=== PATIENT | female | born 1965 | race Caucasian/White ===

== ENCOUNTER 2023-02-27 19:28 | Emergency (ER) | payer BC ==
[~2023-02-27] VITALS: Ht 167.6 cm; Wt 77.3 kg
[2023-02-27 19:41] VITALS: BP 118/68
[2023-02-27] MEDS ORDERED: ketorolac trometh. 30mg/ml inj. IM ONE (20:55)
== END 2023-02-27 21:01 | disposition home or self-care (01) ==
LOC: ER 19:29
DX: M79.602 Pain in left arm (principal); Z88.8 Allergy status to other drugs, medicaments and biological substances
CPT/HCPCS: 93005; 96372; 99283; J1885